=== PATIENT | female | born 1990 | race Caucasian/White ===

== ENCOUNTER 2022-06-10 11:07 | Emergency (ER) | payer MEDICAID ==
[~2022-06-10] VITALS: Ht 160 cm; Wt 54.9 kg
[2022-06-10 11:12] VITALS: BP_SYST 122
--- NOTE | 2022-06-10 11:19 | NUR ---
Pt brought by self, A&OX4, pt presents to ER with pelvic pain, pt states she left the pad for too long last week, also c/o anxiety and palpitations, HR 111, skin pink and warm , cap refill <3.
--- NOTE | 2022-06-10 11:25 | NUR ---
DR BASS OUT TO TRIAGE ROOM TO EVALUATE
[2022-06-10 11:54] LABS: BILIRUBIN,URINE NEGATIVE (NEGATIVE); BLOOD, URINE NEGATIVE (NEGATIVE); CLARITY/URINE CLEAR (CLEAR); COLOR,URINE YELLOW (YELLOW); GLUCOSE,URINE NEGATIVE (NEGATIVE); KETONES,URINE NEGATIVE (NEGATIVE); LEUKOCYTE ESTERASE ,URINE NEGATIVE (NEGATIVE); NITRITE, URINE NEGATIVE (NEGATIVE); PROTEIN URINE NEGATIVE (NEGATIVE)
[2022-06-10] MEDS ORDERED: IBUP-1969 PO (13:10)
--- NOTE | 2022-06-10 13:22 | NUR ---
Patient given written and verbal discharge instructions and verbalizes understanding. ER MD discussed with patient the results and treatment provided. Patient in stable condition. ID arm band removed. Rx of IBUPROFEN given. Patient educated on pain management and to follow up with PMD. Pain Scale 0/10. Opportunity for questions provided and answered. Medication side effect fact sheet provided.
== END 2022-06-10 13:23 | disposition home or self-care (01) ==
LOC: SED 11:07
DX: R00.2 Palpitations (principal); N94.6 Dysmenorrhea, unspecified; Z79.899 Other long term (current) drug therapy
CPT/HCPCS: 36415; 81003; 81025; 87491; 93005; 99284